=== PATIENT | male | born 1965 | race Caucasian/White ===

== ENCOUNTER 2016-10-03 10:51 | Emergency (ER) | payer OTHER ==
[~2016-10-03] VITALS: Ht 172.7 cm; Wt 107.7 kg
--- OUTSIDE RECORDS SUMMARY | 2016-10-03 10:56 | XMS REPORT | Referral Summary ---
Author Author [facility] Organization [facility] Address Unknown Phone Unavailable Care Team Providers Care Audio Director Name Role Phone Vianey Crockett Primary Care Physician [phone] Encounter VC Date(s): 01/24/15 - 01/24/15 [facility] [address] [place] [id number]- Discharge Diagnosis: Elevated cholesterol Discharge Diagnosis: Screening for prostate cancer Discharge Disposition: 01-Home or Self Care Attending Physician: Kevin Crockett MD Admitting Physician: Kevin Crocektt MD Vital Signs Most recent to 1 oldest [Reference Range]: Peripheral Pulse 80 bpm Rate [60-100 bpm] (01/24/15 4:04 PM) Blood Pressure 148/94 mmHg [90-140/60-90 mmHg] *HI* (01/24/15 4:04 PM) Problem List Condition Effective Dates Status Health Status Informant Obesity(Confirmed) Active patient SLIME on Active CPAP(Confirmed) Allergies, Adverse Reactions, Alerts Substance Reaction Severity Status morphine Active Medications atorvastatin 10 mg oral tablet 10 mg 1 tabs, Oral, Daily, # 30 tabs, 2 Refill(s), Pharmacy: [id number], 1 tabs Oral Daily Start Date: 01/18/15 Status: Ordered Results No data available for this section Immunizations No data available for this section Procedures Procedure Date Related Diagnosis Body Site Bilateral vasectomy for contraception 02/27/07 Circumcision Social History Social History Type Response Smoking Status Never smoker Assessment and Plan Extracted from: Title: Ambulatory Patient Education Author: Kevin Crockett MD Date: 01/24 Family Medicine Diabetes, Type 2, Am I At Risk? Diabetes is a lasting (chronic) disease. In type 2 diabetes, the pancreas does not make enough insulin, and the body does not respond normally to the insulin that is made. This type of diabetes was also previously called adult onset diabetes. About 90% of all those who have diabetes have type 2. It usually occurs after the age of 40, but can occur at any age. People develop type 2 diabetes because they do not use insulin properly. Eventually, the pancreas cannot make enough insulin for the body's needs. Over time, the amount of glucose (sugar) in the blood increases. RISK FACTORS Overweight the more weight you have, the more resistant your cells become to insulin. Family history you are more likely to get diabetes if a parent or sibling has diabetes. Race certain races get diabetes more. Americans. [place] Citizen Indians. Americans. Hispanics. . Inactive exercise helps control weight and helps your cells be more sensitive to insulin. Gestational diabetes some women develop diabetes while they are . This goes away when they deliver. However, they are 50-60% more likely to develop type 2 diabetes at a later time. Having a baby over 9 pounds a sign that you may have had gestational diabetes. Age the risk of diabetes goes up as you get older, especially after age 45. High blood pressure (hypertension). SYMPTOMS Many people have no signs or symptoms. Symptoms can be so mild that you might not even notice them. Some of these signs are: Increased thirst. Increased hunger. Tiredness (fatigue). Increased urination, especially at night. Weight loss. Blurred vision. Sores that do not heal. WHO SHOULD BE TESTED? Anyone 45 years or older, especially if overweight, should consider getting tested. If you are younger than 45, overweight, and have one or more of the risk factors, you should consider getting tested. DIAGNOSIS Fasting blood glucose (FBS). Usually, 2 are done. FBS 101-125 mg/dl is considered pre-diabetes. FBS 126 mg/dl or greater is considered diabetes. 2 hour Oral Glucose Tolerance Test (OGTT). This test is preformed by first having you not eat or drink for several hours. You are then given something sweet to drink and your blood glucose is measured fasting, at one hour and 2 hours. This test tells how well you are able to handle sugars or carbohydrates. Fastin-100 mg/dl. 1 hour: less than 200 mg/dl. 2 hours: less than 140 mg/dl. A1c A1c is a blood glucose test that gives and average of your blood glucose over 3 months. It is the accepted method to use to diagnose diabetes. A1c 5.7-6.4% is considered pre-diabetes. A1c 6.5% or greater is considered diabetes. WHAT DOES IT MEAN TO HAVE PRE-DIABETES? Pre-diabetes means you are at risk for getting type 2 diabetes. Your blood glucose is higher than normal, but not yet high enough to diagnose diabetes. The good news is, if you have pre-diabetes you can reduce the risk of getting diabetes and even return to normal blood glucose levels. With modest weight loss and moderate physical activity, you can delay or prevent type 2 diabetes. PREVENTION You cannot do anything about race, age or family history, but you can lower your chances of getting diabetes. You can: Exercise regularly and be active. Reduce fat and calorie intake. Make alvarez food choices as much as you can. Reduce your intake of salt and alcohol. Maintain a reasonable weight. Keep blood pressure in an acceptable range. Take medication if needed. Not smoke. Maintain an acceptable cholesterol level (HDL, LDL, Triglycerides). Take medication if needed. DOING MY PART: GETTING STARTED Making big changes in your life is hard, especially if you are faced with more than one change. You can make it easier by taking these steps: Make a plan to change behavior. Decide exactly what you will do and when you will do it. Plan what you need to get ready. Think about what might prevent you from reaching your goals. Find family and friends who will support and encourage you. Decide how you will reward yourself when you do what you have planned. Your doctor, dietitian, or counselor can help you make a plan. HERE ARE SOME OF THE AREAS YOU MAY WISH TO CHANGE TO REDUCE YOUR RISK OF DIABETES. If you are overweight or obese, choose sensible ways to get in shape. Even small amounts of weight loss, like 5-10 pounds, can help reduce the effects of insulin resistance and help blood glucose control. Diet Avoid crash diets. Instead, eat less of the foods you usually have. Limit the amount of fat you eat. Increase your physical activity. Aim for at least 30 minutes of exercise most days of the week. Set a reasonable weight-loss goal, such as losing 1 pound a week. Aim for a long-term goal of losing 5-7% of your total body weight. Make alvarez food choices most of the time. What you eat has a big impact on your health. By making alvarez food choices, you can help control your body weight, blood pressure, and cholesterol. Take a hard look at the serving sizes of the foods you eat. Reduce serving sizes of meat, desserts, and foods high in fat. Increase your intake of fruits and vegetables. Limit your fat intake to about 25% of your total calories. For example, if your food choices add up to about 2,000 calories a day, try to eat no more than 56 grams of fat. Your caregiver or a dietitian can help you figure out how much fat to have. You can check food labels for fat content too. You may also want to reduce the number of calories you have each day. Keep a food log. Write down what you eat, how much you eat, and anything else that helps keep you on track. When you meet your goal, reward yourself with a nonfood item or activity. Exercise Be physically active every day. Keep and exercise log. Write down what exercise you did, for how long, and anything else that keeps you on track. Regular exercise (like brisk walking) tackles several risk factors at once. It helps you lose weight, it keeps your cholesterol and blood pressure under control, and it helps your body use insulin. People who are physically active for 30 minutes a day, 5 days a week, reduced their risk of type 2 diabetes. If you are not very active, you should start slowly at first. Talk with your caregiver first about what kinds of exercise would be safe for you. Make a plan to increase your activity level with the goal of being active for at least 30 minutes a day, most days of the week. Choose activities you enjoy. Here are some ways to work extra activity into your daily routine: Take the stairs rather than an elevator or escalator. Park at the far end of the lot and walk. Get off the bus a few stops early and walk the rest of the way. Walk or bicycle instead of drive whenever you can. Medications Some people need medication to help control their blood pressure or cholesterol levels. If you do, take your medicines as directed. Ask your caregiver whether there are any medicines you can take to prevent type 2 diabetes. Document Released: 05/14/2004 Document Revised: 08/03/2012 Document Reviewed: [facility] Patient Information 2015 [employer] [facility] [facility]. This information is not intended to replace advice given to you by your health care provider. Make sure you discuss any questions you have with your health care provider. Prostate Cancer Prostate cancer is the abnormal growth of cells in your prostate gland. Your prostate gland is involved in the production of semen. It is located below your bladder and in front of your rectum. A normal prostate gland is the size of a walnut and surrounds the tube that carries urine from the bladder (urethra). RISK FACTORS Age older than 65 years. -[place] Citizen race. Obesity. Family history of prostate cancer. Family history of breast cancer. SIGNS AND SYMPTOMS Frequent urination. Weak or interrupted flow of urine. Difficulty starting or stopping urination. Inability to urinate. Painful or burning urination. Painful ejaculation. Blood in urine or semen. Persistent pain or discomfort in the lower back, lower abdomen, hips, or upper thighs. Difficulty getting an erection. Difficulty emptying your bladder completely. DIAGNOSIS Prostate cancer can be diagnosed by a digital rectal exam, prostate-specific antigen (PSA) blood test, transrectal ultrasonography, and then a biopsy to test a tissue sample. Usually 812 samples are taken. The tissue is sent to a specialist who looks at tissues and cells (pathologist). If cancer is diagnosed, the next step is to stage the cancer. This means it is put in a category based on how far the cancer has spread. This is important for helping your health care providers plan appropriate treatment. The following are the different stages of prostate cancer: Stage ICancer is found in the prostate only. It cannot be felt during a digital rectal exam and is not visible by imaging. It is usually found accidentally, such as during surgery for other prostate problems. Stage IICancer is more advanced than in stage I but has not spread outside the prostate. Stage IIICancer has spread beyond the outer layer of the prostate to nearby tissues. Cancer may be found in the seminal vesicles. Stage IVCancer has spread to lymph nodes or to other parts of the body. The cancer may have spread to the bladder, rectum, bones, liver, or lungs. Prostate cancer often spreads to the bones. Imaging scans, such as a bone scan, CT, PET, or MRI, are done to help in the staging process. TREATMENT Treatments such as surgery, medicines, and radiation may be recommended based on the stage of the cancer and other factors. Once cancer of the prostate has been diagnosed, your health care provider will discuss your treatment with you. Your health care provider will help you decide on the best course of treatment. Treatment often depends on your age, health, and other risk factors. The more common methods of treatment are: Observation for early stage prostate cancer. Open surgeryThis involves a surgery to remove the prostate. Laparoscopic prostatectomy to remove the prostate and lymph nodes. Robotic prostatectomy to remove the prostate and lymph nodes. External beam radiation, which aims beams of radiation from outside the body at the prostate. Internal radiation (brachytherapy), which uses radioactive needles, 40 100 pellets (seeds), wires, or catheters implanted directly into the prostate gland. High-intensity, focused ultrasonography to destroy cancer cells. Cryosurgery to freeze and destroy prostate cancer cells. Chemotherapy medicines to stop the growth of cancer cells either by killing them or by stopping them from multiplying. Hormone treatmentMedicines that stop your body from producing testosterone, or medicines that block testosterone from reaching cancer cells. OrchiectomyThis is surgery to remove your testicles. HOME CARE INSTRUCTIONS Only take [id number]-[id number] or prescription medicines for pain, discomfort, or fever as directed by your health care provider. Maintain a healthy diet. Get plenty of sleep. Consider joining a support group. This may help you learn to cope with the stress of having prostate cancer. Seek advice to help you manage treatment side effects. Keep all follow-up appointments as directed by your health care provider. Inform your cancer specialist if you are admitted to the hospital. Continue sexual expressionIf you experience erectile dysfunction, your natural reaction will be to pull away and avoid all sexual contact. Consider touching, holding, hugging, and caressing as ways to continue sharing sexuality with your partner. SEEK MEDICAL CARE IF: You have trouble urinating. You have blood in your urine. You have trouble getting an erection. You have pain in your hips, back, or chest. SEEK IMMEDIATE MEDICAL CARE IF: You have weakness or numbness in your legs. You have involuntary loss of urine or stool (incontinence). Document Released: 05/12/2006 Document Revised: 03/02/2014 Document Reviewed: [employer] Patient Information 2015 [employer]. This information is not intended to replace advice given to you by your health care provider. Make sure you discuss any questions you have with your health care provider. Sleep Apnea Sleep apnea is a sleep disorder characterized by abnormal pauses in breathing while you sleep. When your breathing pauses, the level of oxygen in your blood decreases. This causes you to move out of deep sleep and into light sleep. As a result, your quality of sleep is poor, and the system that carries your blood throughout your body (cardiovascular system) experiences stress. If sleep apnea remains untreated, the following conditions can develop: High blood pressure (hypertension). Coronary artery disease. Inability to achieve or maintain an erection (impotence). Impairment of your thought process (cognitive dysfunction). There are three types of sleep apnea: 1. Obstructive sleep apneaPauses in breathing during sleep because of a blocked airway. 2. Central sleep apneaPauses in breathing during sleep because the area of the brain that controls your breathing does not send the correct signals to the muscles that control breathing. 3. Mixed sleep apneaA combination of both obstructive and central sleep apnea. RISK FACTORS The following risk factors can increase your risk of developing sleep apnea: Being overweight. Smoking. Having narrow passages in your nose and throat. Being of older age. Being male. Alcohol use. Sedative and tranquilizer use. Ethnicity. Among individuals younger than 35 years, Americans are at increased risk of sleep apnea. SYMPTOMS Difficulty staying asleep. Daytime sleepiness and fatigue. Loss of energy. Irritability. Loud, heavy snoring. Morning headaches. Trouble concentrating. Forgetfulness. Decreased interest in sex. DIAGNOSIS In order to diagnose sleep apnea, your caregiver will perform a physical examination. Your caregiver may suggest that you take a home sleep test. Your caregiver may also recommend that you spend the night in a sleep lab. In the sleep lab, several monitors record information about your heart, lungs, and brain while you sleep. Your leg and arm movements and blood oxygen level are also recorded. TREATMENT The following actions may help to resolve mild sleep apnea: Sleeping on your side. Using a decongestant if you have nasal congestion. Avoiding the use of depressants, including alcohol, sedatives, and narcotics. Losing weight and modifying your diet if you are overweight. There also are devices and treatments to help open your airway: Oral appliances. These are custom-made mouthpieces that shift your lower jaw forward and slightly open your bite. This opens your airway. Devices that create positive airway pressure. This positive pressure "splints" your airway open to help you breathe better during sleep. The following devices create positive airway pressure: Continuous positive airway pressure (CPAP) device. The CPAP device creates a continuous level of air pressure with an air pump. The air is delivered to your airway through a mask while you sleep. This continuous pressure keeps your airway open. Nasal expiratory positive airway pressure (EPAP) device. The EPAP device creates positive air pressure as you exhale. The device consists of single-use valves, which are inserted into each nostril and held in place by adhesive. The valves create very little resistance when you inhale but create much more resistance when you exhale. That increased resistance creates the positive airway pressure. This positive pressure while you exhale keeps your airway open , making it easier to breath when you inhale again. Bilevel positive airway pressure (BPAP) device. The BPAP device is used mainly in patients with central sleep apnea. This device is similar to the CPAP device because it also uses an air pump to deliver continuous air pressure through a mask. However, with the BPAP machine, the pressure is set at two different levels. The pressure when you exhale is lower than the pressure when you inhale. Surgery. Typically, surgery is only done if you cannot comply with less invasive treatments or if the less invasive treatments do not improve your condition. Surgery involves removing excess tissue in your airway to create a wider passage way. Document Released: 05/02/2003 Document Revised: 09/06/2013 Document Reviewed: ExitCare Patient Information 2015 [employer]. This information is not intended to replace advice given to you by your health care provider. Make sure you discuss any questions you have with your health care provider. No follow up information was provided. Extracted from: Title: Office Visit Note Author: Kevin Crockett MD Date: 01/24/15 Assessment/Plan Central sleep apnea Will set patient up for a consult for a sleep study. Will also get a PSA. Follow up in 2 months with a liver and lipid profile. Ordered: Office Visit Level 4 Est 40533 Elevated cholesterol Ordered: Hepatic Function Panel Office Visit Level 4 Est 01730 Fatigue due to sleep pattern disturbance Ordered: Office Visit Level 4 Est 10710 Obesity Discussed the need for life style change and weight lose and diet and exercise. Ordered: Office Visit Level 4 Est 46663 Screening for prostate cancer Ordered: Office Visit Level 4 Est 77984 Prostate Specific Antigen
--- OUTSIDE RECORDS SUMMARY | 2016-10-03 10:56 | XMS REPORT | Referral Summary ---
Author Author [facility] [place] Organization [facility] [place] Address Unknown Phone Unavailable Care Team Providers Care Consulting Services Project Manager Name Role Phone Vianey Crockett Primary Care Physician [phone] Encounter Date(s): 07/04/16 - 07/04/16 [facility] [place] [address], [place] [address] Discharge Diagnosis: SLIME on CPAP Discharge Disposition: 01-Home or Self Care Attending Physician: Elías Leal MD Admitting Physician: Elías Leal MD Vital Signs Most recent to 1 oldest [Reference Range]: Peripheral Pulse 74 bpm Rate [60-100 bpm] (07/04/16 4:03 PM) Blood Pressure 124/72 mmHg [90-140/60-90 mmHg] (07/04/16 4:03 PM) SpO2 97 % (07/04/16 4:03 PM) Problem List Condition Effective Dates Status Health Status Informant Obesity(Confirmed) Active patient SLIME on Active CPAP(Confirmed) Allergies, Adverse Reactions, Alerts Substance Reaction Severity Status morphine Active Medications No Known Medications Results No data available for this section Immunizations No data available for this section Procedures Procedure Date Related Diagnosis Body Site Bilateral vasectomy for contraception 02/27/07 Circumcision Social History Social History Type Response Smoking Status Never smoker Assessment and Plan Extracted from: Title: Office Visit Note Author: Elías Leal Date: 07/04/16 Assessment/Plan 1.SLIME on CPAP - Excellent compliance and adequate response to therapy. - Patient reports controlled symptoms with CPAP use. - Objective therapy report from CPAP unit confirms compliance and controlled AHI. - Patient is advised to avoid driving or other potentially harmful activities if sleepy, drowsy or otherwise impaired. - Weight loss recommended. - Follow up yearly.
--- OUTSIDE RECORDS SUMMARY | 2016-10-03 10:56 | XMS REPORT | Referral Summary ---
Author Author [facility] Organization [facility] Address Unknown Phone Unavailable Care Team Providers Care Manufacturing Helper Name Role Phone Vianey Crockett Primary Care Physician [phone] Encounter VC Date(s): 01/11/16 - 01/11/16 [facility], [address] [place] [id number] Discharge Diagnosis: Viral URI with cough Discharge Disposition: 01-Home or Self Care Attending Physician: Irina Leach DO Admitting Physician: Irina Leach DO Vital Signs Most recent to 1 oldest [Reference Range]: Temperature Tympanic 36.9 degC [36.6-38.1 degC] (01/11/16 3:19 PM) Peripheral Pulse 82 bpm Rate [60-100 bpm] (01/11/16 3:19 PM) Blood Pressure 136/84 mmHg [90-140/60-90 mmHg] (01/11/16 3:19 PM) SpO2 98 % (01/11/16 3:19 PM) Problem List Condition Effective Dates Status Health Status Informant Obesity(Confirmed) Active patient SLIME on Active CPAP(Confirmed) Allergies, Adverse Reactions, Alerts Substance Reaction Severity Status morphine Active Medications Tessalon 200 mg oral capsule 200 mg 1 caps, Oral, TID, as needed for cough, X 10 days, # 30 caps, 0 Refill(s) , Pharmacy: [id number], 1 caps Oral TID,x10 days,PRN:as needed for cough Start Date: 01/11/16 Stop Date: 01/21/16 Status: Ordered Results No data available for this section Immunizations No data available for this section Procedures Procedure Date Related Diagnosis Body Site Bilateral vasectomy for contraception 02/27/07 Circumcision Social History Social History Type Response Smoking Status Never smoker Assessment and Plan Extracted from: Title: Office Visit Note Author: Irina Leach DO Date: 01/11/16 Assessment/Plan Viral URI with cough Advised patient this is likely viral at this time. If his right ear does bother him anymore he can call us and we will send out a prescription for an antibiotic. However we will provide him with Teskennedy Perlbelinda for cough relief and give him a Solu-Medrol injection to try to get him healed as fast as possible for his bike trip. He should return to PCP with any further complaints or concerns. Ordered: methylPREDNISolone, 125 mg, IntraMuscular, Once, First Dose: 01/11/16 16:00:00 CDT, Stop Date: 01/11/16 16:00:00 CDT Office Visit Level 3 Est 81057 Orders: benzonatate, 200 mg 1 caps, Oral, TID, as needed for cough, X 10 days , # 30 caps, 0 Refill(s), Pharmacy: [id number], 1 caps Oral TID,x10 days,PRN:as needed for cough
--- OUTSIDE RECORDS SUMMARY | 2016-10-03 10:56 | XMS REPORT | Referral Summary ---
Author Author [facility] [place] Organization [facility] [place] Address Unknown Phone Unavailable Care Team Providers Care Substation Operator Helper Generation Name Role Phone CrockettVianey Primary Care Physician [phone] Encounter Date(s): 07/04/16 - 07/04/16 [facility] [place] [address] [place], [place] [address] Discharge Disposition: 01-Home or Self Care Attending Physician: Elías Leal MD Vital Signs No data available for this section Problem List Condition Effective Dates Status Health Status Informant Obesity(Confirmed) Active patient SLIME on Active CPAP(Confirmed) Allergies, Adverse Reactions, Alerts Substance Reaction Severity Status morphine Active Medications No data available for this section Results No data available for this section Immunizations No data available for this section Procedures Procedure Date Related Diagnosis Body Site Bilateral vasectomy for contraception 02/27/07 Circumcision Social History Social History Type Response Smoking Status Never smoker Assessment and Plan No data available for this section
--- OUTSIDE RECORDS SUMMARY | 2016-10-03 10:56 | XMS REPORT | Referral Summary ---
Author Author [facility] [place] Organization [facility] [place] Address Unknown Phone Unavailable Care Team Providers Care Soda Jerker Name Role Phone Vianey Crockett Primary Care Physician [phone] Encounter Date(s): 02/07/16 - 02/07/16 [facility] [place] [address] [place], [place] [address] Discharge Disposition: 01-Home or Self Care Attending Physician: Elías Leal MD Admitting Physician: Elías Leal MD Vital Signs No [...]
--- OUTSIDE RECORDS SUMMARY | 2016-10-03 10:56 | XMS REPORT | Referral Summary ---
Author Author [facility] [place] Organization [facility] [place] Address Unknown Phone Unavailable Care Team Providers Care Automation Manager Name Role Phone Vianey Crockett Primary Care Physician [phone] Encounter VC Date(s): 07/06/15 - 07/06/15 [facility] [place] [address] [place], [place] [address] Discharge Diagnosis: SLIME on CPAP Discharge Disposition: 01-Home or Self Care Attending Physician: Elías Leal MD Admitting Physician: Elías Leal MD Vital Signs Most recent to 1 oldest [Reference Range]: Peripheral Pulse 81 bpm Rate [60-100 bpm] (07/06/15 11:17 AM) Blood Pressure 138/84 mmHg [90-140/60-90 mmHg] (07/06/15 11:17 AM) SpO2 95 % (07/06/15 11:17 AM) Problem List Condition Effective Dates Status Health Status Informant Obesity(Confirmed) Active patient SLIME on Active CPAP(Confirmed) Allergies, Adverse Reactions, Alerts Substance Reaction Severity Status morphine Active Medications atorvastatin 10 mg oral tablet 10 mg 1 tabs, Oral, Daily, # 30 tabs, 2 Refill(s), Pharmacy: [facility], 1 tabs Oral Daily Start Date: 01/18/15 Status: Ordered Results No data available for this section Immunizations No data available for this section Procedures Procedure Date Related Diagnosis Body Site Bilateral vasectomy for contraception Social History Social History Type Response Smoking Status Never smoker Assessment and Plan Extracted from: Title: Office Visit Note Author: Elías Leal Date: 07/06/15 MD Assessment/Plan 1.SLIME on CPAP - Excellent compliance [...]
--- OUTSIDE RECORDS SUMMARY | 2016-10-03 10:56 | XMS REPORT | Referral Summary ---
Author Author [facility] [place] Organization [facility] [place] Address Unknown Phone Unavailable Care Team Providers Care Irrigator Sprinkling System Name Role Phone Vianey Crockett Primary Care Physician [phone] Encounter VC Date(s): 05/02/15 - 05/02/15 [facility] [place] [address] [place], [place] [address] Discharge Diagnosis: Snoring Discharge Diagnosis: RLS (restless legs syndrome) Discharge Diagnosis: Hypersomnia Discharge Disposition: 01-Home or Self Care Attending Physician: Elías Leal MD Admitting Physician: Elías Leal MD Referring Physician: Kevin Crockett MD Vital Signs Most recent to 1 oldest [Reference Range]: Peripheral Pulse 91 bpm Rate [60-100 bpm] (05/02/15 4:00 PM) Blood Pressure 138/76 mmHg [90-140/60-90 mmHg] (05/02/15 4:00 PM) SpO2 96 % (05/02/15 4:00 PM) Problem List Condition Effective Dates Status Health Status Informant Fatigue due to sleep Active pattern disturbance(Confirme d) Obesity(Confirmed) Active patient Snoring(Confirmed) Active Allergies, Adverse Reactions, Alerts Substance Reaction Severity Status morphine Active Medications atorvastatin 10 mg oral tablet 10 mg 1 tabs, Oral, Daily, # 30 tabs, 2 Refill(s), Pharmacy: [facility], 1 tabs Oral Daily Start Date: 01/18/15 Status: Ordered Results No data available for this section Immunizations No data available for this section Procedures Procedure Date Related Diagnosis Body Site Bilateral vasectomy for contraception Social History Social History Type Response Smoking Status Never smoker Assessment and Plan Extracted from: Title: Office Visit Note Author: Elías Leal Date: 05/02/15 Assessment/Plan 1.Snoring 2.Hypersomnia Snoring, Suspected Sleep Apnea. Patient has multiple risk factors for obstructive sleep apnea. Pre-test probability for sleep apnea is high. He is a good candidate for split night testing. The testing process was explained to the patient in detail. Other testing options as well as therapeutic options were briefly discussed. We will see patient6 weeks after test to discuss results and management plan. Patient verbalized understanding and agrees with plan. Patient is advised to avoid driving and other potentially harmful activities if sleepy, drowsy or otherwise impaired. Countermeasures to sleepiness include naps before driving, pulling over to nap if driving and caffeine if patient is not in a potentially harmful setting. 3.RLS (restless legs syndrome) No treatment required at this time.
--- OUTSIDE RECORDS SUMMARY | 2016-10-03 10:56 | XMS REPORT | Referral Summary ---
Author Author [facility] [place] Organization [facility] [place] Address Unknown Phone Unavailable Care Team Providers Care Career Services Manager Name Role Phone Bon Vianey Primary Care Physician [phone] Encounter VC Date(s): 05/11/15 - 05/11/15 [facility] [place] [address] [place], [place] [address] Discharge Disposition: 01-Home or Self Care Attending [...] Daily, # 30 tabs, 2 Refill(s), Pharmacy: [id number], 1 tabs Oral Daily Start Date: 01/18/15 Status: Ordered Results No data available for this section Immunizations No data available for this section Procedures Procedure Date Related Diagnosis Body Site Bilateral vasectomy for contraception Social History Social History Type Response Smoking Status Never smoker Assessment and Plan No data available for this section
--- OUTSIDE RECORDS SUMMARY | 2016-10-03 10:56 | XMS REPORT | Continuity of Care Document ---
Author Author [facility] Organization [facility] Address Unknown Phone Unavailable Allergies Active Description Code Type Severity Reaction Onset Reported/Identified Relationship to Patient Clinical Status Yes morphine NKMA N/A N/A 12/22/2013 Medications Problems Procedures Results Encounters ACCT No. Visit Date/Time Discharge Status Pt. Type Provider Facility Loc./Unit Complaint [id number] 07/04/2016 16:30:00 2016 23:59:00 DIS Outpatient Elías Leal A [facility] Sleep CP SUPPLIES [id number] 07/04/2016 15:58:00 2016 23:59:00 DIS Outpatient Elías Leal A [facility] CP 1 yr guzman cpap [id number] 02/07/2016 11:00:00 2015 23:59:00 DIS Outpatient [facility] CP CPAP SUPPLIES [id number] 02/07/2016 10:55:00 2015 23:59:00 DIS Outpatient HeraclioChris Olivero A [facility] Sleep CP cpap will not turn on [id number] 01/11/2016 15:12:00 2015 23:59:00 DIS Outpatient Irina Leach [facility] New TCPA DOC URI [id number] 07/06/2015 11:12:00 2015 23:59:00 DIS Outpatient Chris Lealo A [facility] Sleep CP fu after cpap set up May 22 [id number] 05/22/2015 12:36:00 2014 23:59:00 DIS Outpatient [facility] Sleep CP CPAP SUPPLIES [id number] 05/22/2015 08:46:00 2014 23:59:00 DIS Outpatient Elías Leal A [facility] Sleep CP auto cpap 9-20 no auth purchase/ needs appt [id number] 01/24/2015 15:52:00 2014 23:59:00 DIS Outpatient Kevin Crockett [facility] New FM PHY [id number] 01/17/2015 13:11:00 2014 23:59:00 DIS Outpatient Kevin Crockett [facility] New FM Black Toenail on both feet [id number] 05/02/2015 15:39:00 ACT Outpatient Elías Leal [facility] Sleep CP DR Radha CROCKETT REF SLEEP APNEA
--- OUTSIDE RECORDS SUMMARY | 2016-10-03 10:57 | XMS REPORT | Referral Summary ---
Author Author [facility] Organization [facility] Address Unknown Phone Unavailable Care Team Providers Care Churn Driller Name Role Phone Vianey Crockett Primary Care Physician [phone] Encounter VC Date(s): 01/17/15 - 01/17/15 [facility] [address] [place] [address] Discharge Diagnosis: Screening cholesterol level Discharge Diagnosis: Prostate cancer screening Discharge Disposition: 01-Home or Self Care Attending Physician: Kevin Crockett MD Admitting Physician: Kevin Crockett MD Vital Signs Most recent to 1 oldest [Reference Range]: Blood Pressure 144/90 mmHg [90-140/60-90 mmHg] *HI* (01/17/15 1:22 PM) Problem List Condition Effective Dates Status Health Status Informant Obesity(Confirmed) Active patient SLIME on Active CPAP(Confirmed) Allergies, Adverse Reactions, Alerts Substance Reaction Severity Status morphine Active Medications atorvastatin 10 mg oral tablet 10 mg 1 tabs, Oral, Daily, # 30 tabs, 2 Refill(s), Pharmacy: [facility], 1 tabs Oral Daily Start Date: 01/18/15 Status: Ordered Results Chemistry Most recent to 1 oldest [Reference Range]: Sodium Lvl [135-144 141 mEq/L mEq/L] (01/17/15 2:11 PM) Potassium Lvl 3.6 mEq/L [3.5-5.2 mEq/L] (01/17/15 2:11 PM) Chloride [99-111 105 mEq/L mEq/L] (01/17/15 2:11 PM) CO2 [23-31 mEq/L] 28 mEq/L (01/17/15 2:11 PM) AGAP [3-20] 8 (01/17/15 2:11 PM) BUN [8-26 mg/dL] 10 mg/dL (01/17/15 2:11 PM) Glucose Lvl [70-99 72 mg/dL mg/dL] (01/17/15:11 PM) Creatinine Lvl 0.89 mg/dL [0.72-1.25 mg/dL] (01/17/15:11 PM) eGFR [>60 mL/min] >60 mL/min 1 (01/17/15:11 PM) Calcium Lvl 9.4 mg/dL [8.9-10.5 mg/dL] (01/17/15:11 PM) Albumin Lvl [3.5-5.0 4.6 gm/dL gm/dL] (01/17/15:11 PM) Total Protein 7.5 gm/dL [6.4-8.3 gm/dL] (01/17/15:11 PM) Globulin [1.8-4.0 2.9 gm/dL gm/dL] (01/17/15:11 PM) ALT [0-55 U/L] 60 U/L *HI* (01/17/15:11 PM) AST [5-34 U/L] 36 U/L *HI* (01/17/15:11 PM) Alk Phos [40-150 88 U/L U/L] (01/17/15:11 PM) Bili Total [0.2-1.2 0.8 mg/dL mg/dL] (01/17/15 2:11 PM) PSA (wihout Reflex 1.0 ng/mL 2 Free) [0.0-3.5 (01/17/15:11 PM) ng/mL] Chol [0-199 mg/dL] 237 mg/dL *HI* (01/17/15 2:11 PM) Trig [0-149 mg/dL] 152 mg/dL *HI* (01/17/15:11 PM) HDL [40-84 mg/dL] 40 mg/dL (01/17/15:11 PM) LDL [0-130 mg/dL] 167 mg/dL *HI* (01/17/15:11 PM) VLDL Cholesterol 30 mg/dL [0-28 mg/dL] *HI* (8/25/15 2:11 PM) Cardiac Risk 5.9 [0.0-5.7] *HI* (01/17/15 2:11 PM) 1Result Comment: Multiply eGFR results by 1.21 for race. 2Result Comment: AUA PSA Best Practice Guidelines: Age-Adjusted PSA Values by Ethnic Group Age Range Asians - Caucasians Americans 40-49 0-2.0 0-2.0 0-2.5 50-59 0-3.0 0-4.0 0-3.5 60-69 0-4.0 0-4.5 0-4.5 70-79 0-5.0 0-5.5 0-6.5 Immunizations No data available for this section Procedures Procedure Date Related Diagnosis Body Site Collection of venous blood by venipuncture 01/17/15 Bilateral vasectomy for contraception Social History Social History Type Response Smoking Status Never smoker Assessment and Plan Extracted from: Title: Ambulatory Patient Education Author: Kevin Crockett MD Date: Family Medicine Prostate Cancer The prostate is a male gland that helps produce semen. Prostate cancer is the abnormal growth of cells in this gland. HOME CARE Only take [id number] or prescription medicines as told by your doctor. Eat a healthy diet. Get plenty of sleep. Consider joining a support group. Seek advice to help you manage treatment side effects. Keep all follow-up visits as told by your doctor. Tell your cancer specialist if you are admitted to the hospital. Touch, hold, hug, and caress your partner to continue to show sexual feelings. GET HELP IF: You have trouble peeing (urinating). You have blood in your pee. You have trouble having an erection. You have pain in your hips, back, or chest. GET HELP RIGHT AWAY IF: You have weakness or loss of feeling (numbness) in your legs. You have accidental loss of pee or poop (stool). Document Released: 04/30/2010 Document Revised: 03/02/2014 Document Reviewed: ExitCare Patient Information 2015 [employer]. This information is not intended to replace advice given to you by your health care provider. Make sure you discuss any questions you have with your health care provider. No follow up information was provided. Extracted from: Title: Office Visit Note Author: Kevin Crockett MD Date: 01/17/15 Assessment/Plan Prostate cancer screening Ordered: Office Visit Level 3 Est 89280 Screening cholesterol level Ordered: Office Visit Level 3 Est 33694 Subungual hemorrhage Will continue to follow the toe nail growth and recheck in 2 weeks. Ordered: Office Visit Level 3 Est 65920 Orders: atorvastatin, 10 mg 1 tabs, Oral, Daily, # 30 tabs, 2 Refill(s), Pharmacy: [facility], 1 tabs Oral Daily Lipid Panel
--- OUTSIDE RECORDS SUMMARY | 2016-10-03 10:57 | XMS REPORT | Referral Summary ---
Author Author [facility] [place] Organization [facility] [place] Address Unknown Phone Unavailable Care Team Providers Care Lithography Contact Worker Name Role Phone Bon Vianey Primary Care Physician [phone] Encounter VC Date(s): 05/22/15 - 05/22/15 [facility] [place] [address] [place], [place] [address] Discharge Disposition: 01-Home or Self Care Attending Physician: Elías Leal MD Admitting Physician: Elías Leal MD Referring Physician: Elías Leal MD Vital Signs No data available for this section Problem List Condition Effective Dates Status Health Status Informant Fatigue due to sleep Active pattern disturbance(Confirme d) Obesity(Confirmed) Active patient Snoring(Confirmed) Active Allergies, Adverse Reactions, Alerts Substance Reaction Severity Status morphine Active Medications atorvastatin 10 mg oral tablet 10 mg 1 tabs, Oral, Daily, # 30 tabs, 2 Refill(s), Pharmacy: [facility], 1 tabs Oral Daily Start Date: 01/18/15 Status: Ordered Results No data available for this section Immunizations No data available for this section Procedures Procedure Date Related Diagnosis Body Site Bilateral vasectomy for contraception Social History Social History Type Response Smoking Status Never smoker Assessment and Plan No data available for this section
[2016-10-03 11:02] VITALS: Ht 172.7 cm; Wt 107.7 kg
[2016-10-03] MEDS ORDERED: NO ROUTINE MEDS (11:09)
--- OUTSIDE RECORDS SUMMARY | 2016-10-03 11:09 | XMS REPORT | Continuity of Care Document ---
Author Author [facility] Organization [facility] Address Unknown Phone Unavailable Allergies Active Description Code Type Severity Reaction Onset Reported/Identified Relationship to Patient Clinical Status Yes morphine NKMA N/A N/A 12/22/2013 Medications Problems Procedures Results Encounters ACCT No. Visit Date/Time Discharge Status Pt. Type Provider Facility Loc./Unit Complaint [id number] 07/04/2016 16:30:00 2016 23:59:00 DIS Outpatient Elías Leal A [facility] Sleep CP SUPPLIES [id number] 07/04/2016 15:58:00 2016 23:59:00 DIS Outpatient Elías Leal A [facility] CP 1 yr guzman cpap [id number] 02/07/2016 11:00:00 2015 23:59:00 DIS Outpatient [facility] CP CPAP SUPPLIES [id number] 02/07/2016 10:55:00 2015 23:59:00 DIS Outpatient HeraclioChris Olivero A [facility] CP cpap will not turn on [id number] 01/11/2016 15:12:00 2015 23:59:00 DIS Outpatient Irina Leach [facility] New TCPA DOC URI [id number] 07/06/2015 11:12:00 2015 23:59:00 DIS Outpatient Chris Lealo A [facility] Sleep CP fu after cpap set up May 22 [id number] 05/22/2015 12:36:00 2014 23:59:00 DIS Outpatient [facility] CP CPAP SUPPLIES [id number] 05/22/2015 08:46:00 2014 23:59:00 DIS Outpatient Elías Leal A [facility] CP auto cpap 9-20 no auth purchase/ needs appt [id number] 01/24/2015 15:52:00 2014 23:59:00 DIS Outpatient Kevin Crockett [facility] New FM PHY [id number] 01/17/2015 13:11:00 2014 23:59:00 DIS Outpatient Kevin Crockett [facility] New FM Black Toenail on both feet [id number] 05/02/2015 15:39:00 ACT Outpatient Elías Leal [facility] CP DR Radha CROCKETT REF SLEEP APNEA
[2016-10-03] MEDS ORDERED: MORPHINE SULFATE 4 MG SYRINGE IM ONE (11:15)
[2016-10-03] MEDS ORDERED: ONDANSETRON 4mg/2ml INJECTION IM ONE (11:15)
--- NOTE | 2016-10-03 11:38 | NUR ---
STATUS PT REPORTS HE DOES NOT WANT PAIN MEDS AT THIS TIME. STATES HE WOULD RATHER HAVE DOCTOR USING "[facility]" FOR PAIN IN FING[place].
--- NOTE | 2016-10-03 11:42 | DI ---
EXAM: HAND LEFT 3 VIEW COMPARISON: None available. HISTORY: ITS.REASON: trauma, pain, lac . FINDINGS: There is a nondisplaced longitudinal lucency through the ulnar side of the tuft of the distal phalanx of the second digit consistent with a nondisplaced fracture. This is somewhat comminuted. A tiny 1 x 3 mm foreign body seen projecting over the proximal phalanx of the thumb. there is a tiny radiopaque foreign body measuring approximately 1 mm x 2 mm at the volar aspect of the soft tissues at the level of the distal phalanx of the second digit. The distal radius and ulna and carpal bones and metacarpal bones and remainder of the phalanges are intact. IMPRESSION: 1. Nondisplaced fracture through the tuft of the distal phalanx of the second digit as described above. 2. Tiny radiopaque foreign bodies are seen at the soft tissues at the volar aspect of the distal second digit and projecting over the proximal phalanx of the thumb. [place]CT[place] [facility] [place]
[2016-10-03] MEDS ORDERED: TETANUS,DIPHTH,a PERTUS (Tdap) 0.5 ML VIAL IM ONE (12:00)
[2016-10-03] MEDS ORDERED: CEFAZOLIN 1 GRAM INJECTION IM ONE (12:00)
[2016-10-03] MEDS ORDERED: BUPIVACAINE 0.5% (5mg/ml) 30ml INJ SDV INFIL ONE (12:00)
--- NOTE | 2016-10-03 12:10 | ERPDOC ---
Departure Disposition Decision Date: October 03, 2016 Disposition Decision Time: 12:45 Disposition: 01 DISCHARGED HOME, SELF-CARE Impression Impression Impression: Primary Impression: Open fracture of tuft of distal phalanx of finger Encounter type: initial encounter Qualified Codes: S62.639B - Displaced fracture of distal phalanx of unspecified finger, initial encounter for open fracture Severity: Moderate Condition: Improved Seen By: Physician only Referrals: MAHAD BOWIE MD 1 Day [facility] 1 Week Patient Instructions: Finger Fracture (ED), Finger Laceration (ED) Problems/Meds/Labs Reviewed?: Yes Medications reviewed and manag: Yes Additional Instructions: You have broken and cut your finger. Take the antibiotics as prescribed. Use ice , naproxen, and the norco as needed for pain/swelling. We have repaired the cut with stitches that need to be removed in 7-[address] Bowie's office to arrange follow up. Follow up with your doctor or with [facility] for suture removal. Follow up care ordered?: Yes Mental Status: Alert, Oriented Scripts Hydrocodone/Acetaminophen (Hydrocodon-Acetaminophen 5-300) 5-300 Tablet 1 TAB PO Q6HPRN Y for PAIN, #20 TAB Prov: SEPTEMBERJERMAINE DO 10/03/16 Cephalexin (Keflex) 500 Mg Capsule 1 CAP PO TID for 14 Days, #42 CAP Prov: SEPTEMBERJERMAINE DO 10/03/16 HPI General Chief Complaint: Laceration Stated Complaint: LEFT FINGER LAC Time Seen by Provider: 10:55 Source: patient Exam Limitations: no limitations HPI Hand/Forearm Initial Comments 51yo man presents to the ER today with left index finger pain. Pt dropped a 4"+ cylinder on the finger prior to arrival. Pt was wearing a glove, and the glove finger was cut through; pts finger is bleeding and extremely painful. Pt has not taken anything for the pain so far. Occurred At: home Onset: Rapid Duration: 1 hr Pain Scale: Now & Worst: 8/10 Severity: severe Location: left: 2nd finger 1 - 2.5cm lac Method of Injury: direct blow Modifying Factors: IMPROVES WITH: cold therapy, immobilization, pain medication , WORSE WITH: jarring, movement Associated Symptoms: pain with grasp, DENIES: bruising, redness, swelling Allergies: Coded Allergies: morphine (Verified Allergy, Mild, 10/03/16) Past History Past Medical History Pt denies signifigant H Review of Systems Musculoskeletal General: pain, see HPI All other Systems All Other Systems: Reviewed and Negative Exam General General Nourishment: well nourished, well developed, appears stated age, no acute distress, adult, obese General Body Habitus: well groomed Vital Signs: RN Vital Signs have been reviewed: Yes, Temperature: 98.2, Source : Temporal, Heart Rate: 81, Respiratory Rate: 16, BP: 192/95, Pulse Oximetry: 95 Height (Feet): 5 Height (Inches): 8.00 Fastrak Hand/Forearm Hand/Forearm : Upper Extremity: Left Elbow: NOT FOUND: deformity, ecchymosis, erythema Forearm: NOT FOUND: ecchymosis, erythema, swelling, tender Wrist: NOT FOUND: ecchymosis, erythema, swelling Hand: NOT FOUND: ecchymosis, erythema, swelling Fingers: cap refill <2sec ea digit, impaired grasp, laceration, swelling, tender, NOT FOUND: deformity, ecchymosis, erythema, impaired abduction, impaired adduction, impaired extension, impaired flexion, nail avulsion, rotational deformity, soft touch intact, subungual hematoma Radial Pulse: 2+ Ulnar Pulse: 2+ Neurologic RN Documented GCS Eye Opening: (4)Spontaneous Verbal: (5)Oriented Motor: (6)Obeys Commands Total: Supervisory Exam Head: atraumatic Eyes: PERRL Nares: no exudate Neck: trachea midline Chest: symmetric Abdomen: non-distended Neurological: no abnormal movements Skin: pink, dry Psychological: alert, appropriate Differential Diagnoses Considering: Amputation, Contusion, Dislocation, Fracture, Laceration, Sprain, Strain Procedures Laceration/Wound Repair Wound/Laceration Repair : Wound Location: upper extremity Wound Length (cm): 2.5 Depth, Shape: linear Explored: contaminated Irrigated: saline Prep: hibiclens Anesthesia: 0.5% Bupivicaine Volume Anesthetic (ccs): 10 Type of Block: digital Wound Debrided: moderate Wound Revision?: No Repaired With: Sutures Suture Size: 5:0 Suture Type: ethilon Number of Sutures: 5 Layer Closure?: No Sterile Dressing Applied?: Yes Splint Applied?: Yes Sling Applied?: No Splinting Procedure Splint : Site: left 2nd digit Pre-placement NV: FOUND: cap refill < 3 sec, good movement, good sensation Pre-Made Type: metal Splint: volar Post-placement NV: FOUND: cap refill < 3 sec, good movement, good sensation Applied by: RN, MD/DO Progress Results/Orders Orders Procedure Category Date Status Time Hand Left 3 View RAD 10/03/16 Resulted 11:10 Ondansetron Inj PHA 10/03/16 Complete (Zofran) 11:15 Morphine Sulfate PHA 10/03/16 Complete (Morphine) 11:15 Bupivacaine 0.5% PHA 10/03/16 Complete (Marcaine 0.5%) 12:00 Cefazolin (Kefzol) PHA 10/03/16 Complete 12:00 Tetanus,Diphth,A PHA 10/03/16 Complete Pertus (Tdap) (Adacel) 12:00 Neomycin/Polymyxin/Bacitracin PHA 10/03/16 Complete (Neosporin 13:00 Medications Current ED Medications Ondansetron HCl (Zofran) 4 mg O ONCE IM ; Start 10/03/16 at 11:15; Stop at 11:16; Status DC Morphine Sulfate (Morphine) 4 mg O ONCE IM ; Start 10/03/16 at 11:15; Stop 04/11 at 11:16; Status DC Bupivacaine HCl (Marcaine 0.5%) 150 mg O ONCE INFIL Last administered on 12:00; Start 10/03/16 at 12:00; Stop 10/03/16 at 12:01; Status DC Cefazolin Sodium (Kefzol) 1 g O ONCE IM Last administered on 10/03/16 12:25; Start 10/03/16 at 12:00; Stop 10/03/16 at 12:01; Status DC Diphtheria/ Tetanus/Acell Pertussis (Adacel) 0.5 ml O ONCE IM Last administered on 10/03/16 12:23; Start 10/03/16 at 12:00; Stop 10/03/16 at 12:01 ; Status DC Neomycin/ Polymyxin/ Bacitracin (Neosporin) 1 applic O ONCE TOP Last administered on 10/03/16 13:00; Start 10/03/16 at 13:00; Stop 10/03/16 at 13:01 ; Status DC Progress Progress 51yo man with open tuft fx. Laceration repaired, atbx given, and splint applied as described. Pt tolerated all procedure well; discussed dx, prognosis, tx, and need for f/u with pt who voiced understanding. F/u with Dr. Bowie. Xray Xray : Xray: Hand L Interpretation: Abnormal (Medial fx through tuft of 2nd phalanx.), Interpreted by Me, Reviewed Written Report SEPTEMBERJERMAINE DO October 03, 2016 12:10
--- NOTE | 2016-10-03 12:30 | NUR ---
SUTURE PLACEMENT DR. FAGAN AT BEDSIDE FOR SUTURE PLACEMENT.
[2016-10-03] MEDS ORDERED: CEPH-583 PO (12:49)
[2016-10-03] MEDS ORDERED: HYDR-2600 PO (12:50)
[2016-10-03] MEDS ORDERED: NEOMYCIN/POLYM/BACITR OINT PACKET TOP ONE (13:00)
--- NOTE | 2016-10-03 13:00 | NUR ---
SPLINT/DRSG PLACED AT THIS TIME.
[2016-10-03 13:05] VITALS: BP 148/79; PULSE 71; RESP 16; TEMP 98.2; O2SAT 99
--- NOTE | 2016-10-03 13:05 | NUR ---
DISMISSAL INSTRUCTIONS AND RX GIVEN/REVIEWED WITH PT. VERBALIZES UNDERSTANDING. LEAVES DEPT AMBULATORY UPON DISMISSAL.
== END 2016-10-03 13:05 | disposition home or self-care (01) ==
LOC: ED 10:51
DX: S62.631B Displaced fracture of distal phalanx of left index finger, initial encounter for open fracture (principal); W20.8XXA Other cause of strike by thrown, projected or falling object, initial encounter; Y93.9 Activity, unspecified; Y92.009 Unspecified place in unspecified non-institutional (private) residence as the place of occurrence of the external cause; Y99.8 Other external cause status
CPT/HCPCS: 12001; 29130; 73130; 90471; 90715; 96372; 99283; J0690